=== PATIENT | male | born 1945 | race Caucasian/White ===

== ENCOUNTER → 2016-09-23 | Outpatient (CLI) | payer MEDICARE, BC ==
[~2016-09-23] MED LIST: AMLO5TAB66 PO; ASPI-611 PO; BETA PROSTATE PO; COENZYME; DIPH-343 PO; FISH1CAP29 PO; LOSA50TA17 PO; SIMV40TA82 PO
--- NOTE | 2016-09-23 16:09 | DI ---
Indication: ITS.REASON: M70.41 Prepatellar bursitis, right knee; M23.41 Loose body in kne KNEE RIGHT 3 VIEWS Comparison: None Findings: There is no acute fracture, dislocation or malalignment identified. Impression: No acute osseous abnormality. .
== END ==
LOC: IMA 14:57
PROVIDERS: ATTEND Internal Medicine
DX: M70.41 Prepatellar bursitis, right knee (principal); M23.41 Loose body in knee, right knee